=== PATIENT | female | born 1970 | race Caucasian/White ===

== ENCOUNTER 2023-04-06 11:47 | Emergency (ER) | payer MEDICAID, SELFPAY ==
[2023-04-06] VITALS (28 sets, daily range): BP systolic 115–137; BP diastolic 61–110; PULSE 80–100; RESP 14–33; TEMP 36.8; O2SAT 94–98; BMI 31.4
[2023-04-06] MEDS: IPRATROPIUM/ALBUTEROL SULFATE 3 ML AMPUL.NEB IH ×2 (12:14→14:06)
[2023-04-06 12:19] LABS: Basophils Absolute Auto 0.1 10^3/uL (0.0-0.1); Basophils Percent Auto 0.6 % (0.2-2.0); Eosinophils Percent Auto 5.3 % (0.9-7.0); Hematocrit 38.7 % (36.0-48.0); Hemoglobin 12.3 g/dL (12.0-16.0); Immature Granulocytes Abs Auto 0.21 10^3/uL (0.00-0.03); Immature Granulocytes Pct Auto 1.1 % (0.0-0.5); Lymphocytes Absolute Auto 2.1 10^3/uL (1.2-3.8); Mean Corpuscular HGB Conc 31.8 g/dL (29.9-35.2); Mean Corpuscular Hemoglobin 28.1 pg (26.7-34.0); Mean Corpuscular Volume 88.6 fL (81.0-99.0); Mean Platelet Volume 8.9 fL (9.5-13.5); Monocytes Absolute Auto 1.4 10^3/uL (0.3-0.8); Monocytes Percent Auto 7.1 % (1.7-12.0); Neutrophils Absolute Auto 14.4 10^3/uL (1.4-6.5); Neutrophils Percent Auto 74.9 % (43.0-75.0); Platelet Count 499 10^3/uL (150-450); Red Blood Count 4.37 10^6/uL (4.20-5.40); Red Cell Distribution Width 13.3 % (11.0-15.0); White Blood Count 19.2 10^3/uL (4.0-11.0)
[2023-04-06 12:30] LABS: Alanine Aminotransferase 47 U/L (14-59); Albumin Globulin Ratio 0.5; Albumin Level 2.5 g/dL (3.4-5.0); Alkaline Phosphatase 90 U/L (46-116); Anion Gap 10.5; Aspartate Amino Transferase 49 U/L (15-37); BUN Creatinine Ratio 21.4; Bilirubin Total 0.6 mg/dL (0.2-1.0); Calcium 9.2 mg/dL (8.5-10.1); Carbon Dioxide 29.4 mmol/L (21.0-32.0); Chloride 102 mmol/L (98-107); Estimated GFR (African America >60 (>=60); Estimated GFR (Non-African Ame >60 (>=60); Globulin 4.9 g/dL; Glucose 110 mg/dL (74-106); Sodium 139 mmol/L (136-145); Total Protein 7.4 g/dL (6.4-8.2)
[2023-04-06 12:32] LABS: Troponin I High Sensitivity 5.3 pg/mL (4.0-51.3)
[2023-04-06 12:34] LABS: Potassium 2.9 mmol/L (3.5-5.1)
[2023-04-06] MEDS: METHYLPREDNISOLONE SOD SUCC PF 125 MG/2 ML VIAL IVP (12:34)
--- NOTE | 2023-04-06 12:35 | PC.NURSE ---
Critical potassium level received and Dr. Perry notified.
[2023-04-06] MEDS: 0.9 % SODIUM CHLORIDE 1,000 ML 1000 ML IV (12:37)
--- NOTE | 2023-04-06 12:41 | XR_ITS ---
[facility] [id number] Patient Name: PAOLO BOSTON MRN: [id number] date: 1970 Sex: F Assigned Patient Location: ER Current Patient Location: ED.MAIN Accession/Order Number: [id number] Exam Date: 04/06/2023 12:53 Report Date: 04/06/2023 14:12 At the request of: LAY GENAO Procedure: XR chest 1V EXAM: XR chest 1V HISTORY: sob upper extremity infection x2 weeks. Cough. Shortness of breath. COMPARISON: None. TECHNIQUE: AP chest x-ray. FINDINGS: Cardiac size appears within normal limits. Trachea is midline. No mediastinal widening. Mild perihilar peribronchial thickening is noted. No focal airspace consolidation, pneumothorax or effusion is seen. Osseous structures appear intact. XR/XR chest 1V IMPRESSION: Reactive or inflammatory airways disease. No focal pneumonia. Electronically authenticated by: BRE CASTLE Date: 04/06/2023 14:12
--- NOTE | 2023-04-06 12:41 | ECG_ITS ---
[facility] Test Date: 2023-04-06 Pat Name: PAOLO BOSTON Department: Room: - Gender: Female Scale Clerk: : 1970 Requested By: Order Number: [id number] Reading MD: JERMAINE HOLMAN Measurements Intervals [place] Rate: 96 P: 80 ME: 138 QRS: 31 QRSD: 86 T: 65 QT: 352 QTc: 405 Interpretive Statements 1100 Sinus rhythm 9110 normal ECG No previous ECG available for comparison Electronically Signed On 04-08-2023 17:30:01 EST by JERMAINE HOLMAN
[2023-04-06 12:49] LABS: Lactate/Lactic Acid 0.7 mmol/L (0.4-2.0)
[2023-04-06 13:07] LABS: Internal Control Within Normal Limits; Strep A Antigen Screen Negative
--- NOTE | 2023-04-06 13:57 | PC.NURSE ---
assissted pt to the bathroom and back in room. Pursed lip breathing demonstrated and pt returned demonstration with maximum verbal cuing. Pt requested another breathing treatment. notified and agreed. Retrieved gatorade for pt and SL at this time. Primary nurse notified. RT called
[2023-04-06 14:00] LABS: SARS-CoV-2 Ag NEGATIVE (NEGATIVE)
[2023-04-06] MEDS: POTASSIUM CHLORIDE 10 MEQ ER TABLET 40 MEQ PO (14:59)
[2023-04-06] MEDS: AZITHROMYCIN 250 MG TABLET 500 MG PO (14:59)
--- NOTE | 2023-04-07 07:43 | ED.SOB1 ---
HPI - SOB/Dyspnea General Chief Complaint: Shortness of Breath/Dyspnea Stated Complaint: DIFF BREATHING Time Seen by Provider: 04/06/23 12:06 Source: patient Mode of arrival: Wheelchair Limitations: no limitations History of Present Illness HPI Narrative: The patient have history of asthma coming to the ER with shortness of breath that been going on at least for 3 weeks she did run out of her inhaler and she does not have it. The patient did not have any evaluation by her doctor for the last 3 weeks and she was trying [id number] medication. She is presenting to us with shortness of breath cough productive of whitish sputum No nausea vomiting or diarrhea no abdominal pain or chest pain Related Data Previous Rx's Medication Instructions Recorded albuterol sulfate 90 mcg/actuation 2 inh inhalation QID PRN shortness 04/06/23 aerosol inhaler of breath or wheezing #8.5 grams fluticasone 250 mcg-salmeterol 50 1 inh inhalation BID #60 ea 04/06/23 mcg/dose blistr powdr for inhalation (Advair Diskus) potassium chloride 20 mEq oral 20 meq PO DAILY 2 doses #2 ea 04/06/23 packet prednisone 50 mg tablet 50 mg PO DAILY 5 days #5 tabs 04/06/23 azithromycin 250 mg tablet See Rx Instructions PO .COMPLEX #6 04/07/23 tabs Allergies Allergy/AdvReac Type Severity Reaction Status Date / Time No Known Drug Allergies Allergy Verified 04/06/23 19:08 Review of Systems ROS Status of ROS 10 or more systems reviewed and unremarkable except as noted in history and below PFSH PFSH Medical History (Updated 04/06/23 @ 23:04 by Dori Perez) FHx: cholecystectomy ?Z83.79 - Family history of other diseases of the digestive system (ICD-10) Heart burn ?R12 - Heartburn (ICD-10) Surgical History (Updated 04/06/23 @ 23:04 by Dori Perez) Hx of section ?Z98.891 - History of uterine scar from previous surgery (ICD-10) Family History (Updated 04/06/23 @ 23:05 by Dori Perez) Mother Family history of COPD (chronic obstructive pulmonary disease) Family history of cancer Father Family history of cancer Aunt Family history of cancer Social History (Updated 04/06/23 @ 23:07 by Dori Perez) Within the past year, how often did you have a drink containing alcohol: monthly or less Within the past year, how many standard drinks containing alcohol did you have on a typical day: 1 or 2 Within the past year, how often did you have six or more drinks on one occasion: less than monthly Total score: 1 Score interpretation: A score less than 3 is consistent with normal alcohol consumption. Smoking status: Never smoker Second hand tobacco smoke exposure: No Non-prescribed substance use: denies use Previous occupational history: disabled Known occupational exposures/hazards: No Highest level of school completed/degree received: high school graduate Do you want help with school or training: No Are you now , , , , never or living with a partner: In a typical week, how many times do you talk on the telephone with family, friends, or neighbors: once per week How often do you get together with friends or relatives: once per week How often do you attend latter-day or religion services: never Do you belong to any clubs or organizations such as latter-day groups unions, fraternal or athletic groups, or school groups: no Total score: 0 Score interpretation: A score of less than or equal to 1 indicates the most socially isolated. Little interest or pleasure in doing things: not at all Feeling down, depressed, or hopeless: not at all Feel stressed/tense/nervous/anxious/difficulty sleeping: not at all Due to disability, difficulty making decisions: No Do you think of yourself as: straight/heterosexual Gender Identity: female Exam Narrative Exam Narrative: Nurses notes and vital signs reviewed and patient is not hypoxic. General: Well-appearing and in no apparent distress. Skin: Warm, dry, no pallor noted. No rash. Head: Normocephalic, atraumatic. Neck: Supple, non-tender. Eye: Pupils are equal, round and EOMI. No scleral icterus. Ears, Nose, Mouth, and Throat: TM are clear, no nasal mucosal hypertrophy. Oral mucosa is moist, no posterior oropharynx erythema, uvula is mid-line Cardiovascular: Regular Rate and Rhythm without murmur, gallop or rub. Respiratory: Mildly distressed Lungs the patient is having bilateral expiratory lung wheezes Chest Wall: no tenderness Back: No midline thoracic or lumbar vertebral tenderness. No CVA tenderness Musculoskeletal: normal ROM, no calf or popliteal tenderness, no lower extremity edema/swelling GI: Abdomen is soft, non-distended. Normal bowel sounds. No masses appreciated. No tenderness to palpation. No rebound, guarding, or rigidity noted. Neurological: A&O x4. No cranial nerve dysfunction observed. No truncal ataxia. Moves all extremities. Sensation intact. Psychiatric: Cooperative and interactive. Normal mood and affect. Constitutional Vital Signs, click to edit/add: Last Vital Signs Temp 98.2 F 04/06/23 11:57 Pulse 86 04/06/23 15:15 Resp 16 04/06/23 15:15 BP 134/77 04/06/23 15:14 Pulse Ox 96 04/06/23 15:15 O2 Del Method Room Air 04/06/23 12:21 Course Vital Signs Vital signs: Vital Signs Temperature 98.2 F 04/06/23 11:57 Pulse Rate 100 H 04/06/23 11:57 Respiratory Rate 22 04/06/23 11:57 Blood Pressure 137/110 H 04/06/23 11:57 Pulse Oximetry 95 04/06/23 11:57 Oxygen Delivery Method Room Air 04/06/23 11:57 Temperature 98.2 F 04/06/23 11:57 Pulse Rate 86 04/06/23 15:15 Respiratory Rate 16 04/06/23 15:15 Blood Pressure 134/77 04/06/23 15:14 Pulse Oximetry 96 04/06/23 15:15 Oxygen Delivery Method Room Air 04/06/23 12:21 MDM - SOB/Dyspnea MDM Narrative Medical decision making narrative: The patient EKG in the ER was showing sinus rhythm with a heart rate of [address] elevation or depression CBC showed leukocytosis and the patient chemistry showing hypokalemia, Lactic acid was not elevated The patient was feeling much better after being treated with Solu-Medrol as well as breathing treatment in the ER and hydration as well as p.o. potassium She requested to go home after I recommended initially for her to be admitted but after walking around in the hallway the patient pulse ox stayed within 94 to 95% The patient was adamant about leaving because it was her birthday And the patient right now was provided with a prescription for prednisone as well as potassium Advair and albuterol and she also was called antibiotic next day to her pharmacy The patient was instructed about the importance of coming back in case of any more shortness of breath and she understands The patient is to follow up with primary care physician in next 2-3 days or to return to the emergency department should any of the signs or symptoms worsen or new symptoms develop. The patient agrees with the following Diagnosis and Treatment plan and the patient will be discharged home. Lab Data Labs: Lab Results 04/06/23 04/06/23 04/06/23 Range/Units 12:05 12:06 12:46 WBC 19.2 H (4.0-11.0) 10^3/uL RBC 4.37 (4.20-5.40) 10^6/uL Hgb 12.3 (12.0-16.0) g/dL Hct 38.7 (36.0-48.0) % MCV 88.6 (81.0-99.0) fL MCH 28.1 (26.7-34.0) pg MCHC 31.8 (29.9-35.2) g/dL RDW 13.3 (11.0-15.0) % Plt Count 499 H (150-450) 10^3/uL MPV 8.9 L (9.5-13.5) fL Neut % (Auto) 74.9 (43.0-75.0) % Lymph % (Auto) 11.0 L (20.5-60.0) % Borden % (Auto) 7.1 (1.7-12.0) % Eos % (Auto) 5.3 (0.9-7.0) % Baso % (Auto) 0.6 (0.2-2.0) % Neut # (Auto) 14.4 H (1.4-6.5) 10^3/uL Lymph # (Auto) 2.1 (1.2-3.8) 10^3/uL Borden # (Auto) 1.4 H (0.3-0.8) 10^3/uL Eos # (Auto) 1.0 H (0.0-0.7) 10^3/uL Baso # (Auto) 0.1 (0.0-0.1) 10^3/uL Abs Immat Gran (auto) 0.21 H (0.00-0.03) 10^3/uL Imm/Tot Granulo (auto) 1.1 H (0.0-0.5) % Sodium 139 (136-145) mmol/L Potassium 2.9 L* (3.5-5.1) mmol/L Chloride 102 (98-107) mmol/L Carbon Dioxide 29.4 (21.0-32.0) mmol/L Anion Gap 10.5 BUN 18.0 (7.0-18.0) mg/dL Creatinine 0.84 (0.55-1.02) mg/dL Est GFR ( Amer) >60 (>=60) Est GFR (Non-Af Amer) >60 (>=60) BUN/Creatinine Ratio 21.4 Glucose 110 H (74-106) mg/dL Lactate 0.7 (0.4-2.0) mmol/L Calcium 9.2 (8.5-10.1) mg/dL Total Bilirubin 0.6 (0.2-1.0) mg/dL AST 49 H (15-37) U/L ALT 47 (14-59) U/L Alkaline Phosphatase 90 (46-116) U/L Troponin I High Sens 5.3 (4.0-51.3) pg/mL Total Protein 7.4 (6.4-8.2) g/dL Albumin 2.5 L (3.4-5.0) g/dL Globulin 4.9 g/dL Albumin/Globulin Ratio 0.5 SARS-CoV-2 (PCR) Negative (NEGATIVE) Streptococcus Screen Negative Discharge Plan Discharge Chief Complaint: Shortness of Breath/Dyspnea Clinical Impression: Asthma with acute exacerbation Patient Disposition: Home, Self-Care Time of Disposition Decision: 15:07 Condition: Good Prescriptions / Home Meds: New prednisone 50 mg tablet 50 mg PO DAILY 5 Days Qty: 5 0RF potassium chloride 20 mEq packet 20 meq PO DAILY Qty: 2 0RF fluticasone propion-salmeterol [Advair Diskus] 250-50 mcg/dose blister with device 1 inh inhalation BID Qty: 60 0RF albuterol sulfate 90 mcg/actuation HFA aerosol inhaler 2 inh inhalation QID PRN (Reason: shortness of breath or wheezing) Qty: 8.5 0RF azithromycin 250 mg tablet See Rx Instructions .ROUTE .COMPLEX Qty: 6 0RF Rx Instructions: For 250 mg dose pack: take 500 mg today (day 1), then 250 mg for 4 days (days 2-5) Instructions: Asthma (ED), Hypokalemia (ED) Stand Alone Forms: Portal Instructions Referrals: Physician,Non-Staff, MD [Primary Care Provider] - 1 week Discharge Date/Time: 04/06/23 15:17
[2023-04-07 10:23] LABS: SARS-CoV-2 NAA NOT DETECTED (NOT DETECTE)
== END 2023-04-06 15:17 | disposition home or self-care (01) ==
PROVIDERS: Emergency Provider Emergency Medicine
DX: J45.901 Unspecified asthma with (acute) exacerbation (principal)
CPT/HCPCS: 36415; 71045; 80053; 83605; 84484; 85025; 87040; 87070; 87635; 87811; 87880; 93005; 94640; 96374; 99285; J2930

== ENCOUNTER 2023-04-06 18:45 | Observation (INO) | payer MEDICAID, SELFPAY ==
[2023-04-06] VITALS (8 sets, daily range): BP systolic 116–154; BP diastolic 70–93; PULSE 98–114; RESP 20–28; TEMP 36.6–36.9; O2SAT 93–95; BMI 32.0
--- NOTE | 2023-04-06 20:51 | ED_ITS ---
HPI - SOB/Dyspnea General Chief Complaint: Shortness of Breath/Dyspnea Stated Complaint: DIFF BREATHING Time Seen by Provider: 04/06/23 19:16 Source: patient Mode of arrival: Wheelchair Limitations: no limitations History of Present Illness HPI Narrative: 53-year-old female presents for difficulty breathing. She was seen here earlier today and apparently the physician who saw her wanted her to be admitted. The pa yeny apparently refused because it's her birthday. She went out to eat and then she came here to be admitted. She recently moved here from [place] and states that the climate is affecting her. She was found to have a potassium is 2.9 earlier today. No known fever. Related Data Previous Rx's Medication Instructions Recorded albuterol sulfate 90 mcg/actuation 2 inh inhalation QID PRN shortness 04/06/23 aerosol inhaler of breath or wheezing #8.5 grams fluticasone 250 mcg-salmeterol 50 1 inh inhalation BID #60 ea 04/06/23 mcg/dose blistr powdr for inhalation (Advair Diskus) potassium chloride 20 mEq oral 20 meq PO DAILY 2 doses #2 ea 04/06/23 packet prednisone 50 mg tablet 50 mg PO DAILY 5 days #5 tabs 04/06/23 Allergies Allergy/AdvReac Type Severity Reaction Status Date / Time No Known Drug Allergies Allergy Verified 04/06/23 19:08 Review of Systems ROS Narrative A ten point review of systems is negative except as noted above. PFSH PFSH Social History Smoking status: Never smoker Exam Narrative Exam Narrative: Nurses note and vital signs reviewed and patient is not hypoxic. General: The patient appears in no acute respiratory distress. Skin: Warm, dry, no pallor noted. There is no rash noted. Head: Normocephalic, atraumatic Eye: Normal conjunctiva, no drainage, Ears, Nose, Mouth, and Throat: oral mucosa is moist. Nares patent. Cardiovascular: Regular Rate and Rhythm, mild tachycardia Respiratory: bilateral rhonchi present but good air movement also present Back: non-tender GI: soft and nontender Musculoskeletal: The patient has no evidence of calf tenderness, no pitting edema, symmetrical pulses noted bilaterally Neurological: A&O, normal speech Psychiatric: Cooperative Constitutional Vital Signs, click to edit/add: Last Vital Signs Temp 97.9 F 04/06/23 19:05 Pulse 104 H 04/06/23 21:01 Resp 20 04/06/23 21:01 BP 116/78 04/06/23 19:05 Pulse Ox 94 L 04/06/23 21:01 O2 Del Method Room Air 04/06/23 19:05 Course Vital Signs Vital signs: Vital Signs Temperature 97.9 F 04/06/23 19:05 Pulse Rate 114 H 04/06/23 19:05 Respiratory Rate 20 04/06/23 19:05 Blood Pressure 116/78 04/06/23 19:05 Pulse Oximetry 95 04/06/23 19:05 Oxygen Delivery Method Room Air 04/06/23 19:05 Temperature 97.9 F 04/06/23 19:05 Pulse Rate 104 H 04/06/23 21:01 Respiratory Rate 20 04/06/23 21:01 Blood Pressure 116/78 04/06/23 19:05 Pulse Oximetry 94 L 04/06/23 21:01 Oxygen Delivery Method Room Air 04/06/23 19:05 MDM - SOB/Dyspnea MDM Narrative Medical decision making narrative: earlier today she had negative chest x-ray and negative Covid and negative influenza testing. We've given her aerosol treatment here as well as Solu-Medrol and Zofran and oral potassium and she's being admitted. Findings are discussed with the patient. Differential Diagnosis Differential diagnosis: Likely community acquired pneumonia and asthma with exacerbation Medical Records Attestation: I reviewed the patient's medical records. Lab Data Attestation: I reviewed the patient's lab results. Imaging Data Chest x-ray: Radiologist's impression: Procedure: XR chest 1V EXAM: XR chest 1V HISTORY: sob upper extremity infection x2 weeks. Cough. Shortness of breath. COMPARISON: None. TECHNIQUE: AP chest x-ray. FINDINGS: Cardiac size appears within normal limits. Trachea is midline. No mediastinal widening. Mild perihilar peribronchial thickening is noted. No focal airspace consolidation, pneumothorax or effusion is seen. Osseous structures appear intact. IMPRESSION: Reactive or inflammatory airways disease. No focal pneumonia. Electronically authenticated by: BRE CASTLE Date: 04/06/2023 14:12 Critical Care Time Critical Care Time Critical Care Time: Yes Total Critical Care Time: 35 Attestation: Due to the high probability of sudden and clinically significant deterioration in the patient's condition he/she required the highest level of my preparedness to intervene urgently I provided critical care time including documentation time, medication orders and management, reevaluation, vital sign assessment, ordering and reviewing of lab tests, ordering and reviewing of x-ray studies, and admission orders. Aggregate critical care time is 35 minutes including only time during which I was engaged in work directly related to his/her care and did not include time spent treating other patients simultaneously. Discharge Plan Discharge Chief Complaint: Shortness of Breath/Dyspnea Clinical Impression: Asthma with acute exacerbation, Hypokalemia Patient Disposition: Admitted as Observation Time of Disposition Decision: 21:35 Condition: Good Prescriptions / Home Meds: No Action prednisone 50 mg tablet 50 mg PO DAILY 5 Days Qty: 5 0RF potassium chloride 20 mEq packet 20 meq PO DAILY Qty: 2 0RF fluticasone propion-salmeterol [Advair Diskus] 250-50 mcg/dose blister with device 1 inh inhalation BID Qty: 60 0RF albuterol sulfate 90 mcg/actuation HFA aerosol inhaler 2 inh inhalation QID PRN (Reason: shortness of breath or wheezing) Qty: 8.5 0RF Referrals: Physician,Non-Staff, MD [Primary Care Provider] - 1 week
--- NOTE | 2023-04-06 20:54 | ECG_ITS ---
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
[2023-04-06] MEDS: ALBUTEROL SULFATE 2.5 MG/3 ML VIAL NEB IH (21:01)
[2023-04-06] MEDS: ONDANSETRON PF 4 MG/2 ML VIAL IV (21:30)
[2023-04-06] MEDS: METHYLPREDNISOLONE SOD SUCC PF 125 MG/2 ML VIAL IVP (21:30)
[2023-04-06] MEDS: POTASSIUM BICARBONATE/CIT 25 MEQ TABLET EFF 50 MEQ PO (21:31)
--- NOTE | 2023-04-07 00:17 | P.PN_ITS ---
Progress Note: Subjective Subjective Interval history: CCC - Exam Constitutional Vital Signs, click to edit/add: Last Vital Signs Temp 98.5 F 04/06/23 22:39 Pulse 98 H 04/06/23 22:39 Resp 28 H 04/06/23 22:39 BP 154/79 H 04/06/23 22:39 Pulse Ox 93 L 04/06/23 22:39 O2 Del Method Room Air 04/06/23 22:39 Telemedicine Attestation Telemedicine Attestation I conducted this encounter from [] via secure live, [id number] video conference with the patient, located at [facility] with []. Prior to the interview, the risks and benefits of telemedicine were discussed with the patient and verbal consent was obtained.
[2023-04-07] MEDS: TEMAZEPAM 15 MG CAPSULE PO (00:35)
[2023-04-07] MEDS: CEFTRIAXONE 1,000 MG in 0.9 % SODIUM CHLORIDE 50 ML 100 MG IV (00:35)
[2023-04-07] MEDS: MONTELUKAST SODIUM 10 MG TABLET PO (00:35)
[2023-04-07 00:36] VITALS: PULSE 100; RESP 24; O2SAT 94
[2023-04-07] MEDS: ALBUTEROL SULFATE 2.5 MG/3 ML VIAL NEB IH ×2 (00:36→13:32)
[2023-04-07] MEDS: AZITHROMYCIN 500 MG in 0.9 % SODIUM CHLORIDE 250 ML 250 MG IV (01:18)
[2023-04-07] MEDS: METHYLPREDNISOLONE SOD SUCC PF 40 MG/ML VIAL IVP (04:03)
[2023-04-07 04:08] VITALS: BP 130/77; PULSE 99; RESP 18; TEMP 36.7; O2SAT 90
[2023-04-07 04:26] VITALS: PULSE 100; RESP 24; O2SAT 92
[2023-04-07] MEDS: IPRATROPIUM/ALBUTEROL SULFATE 3 ML AMPUL.NEB IH ×2 (04:26→10:51)
--- NOTE | 2023-04-07 05:57 | W.PM.TELEPN ---
Progress Note: Subjective Subjective Interval history: CC -short of breath cough HPI: This is a 53 years old white female with known diagnosis of asthma who presents with above complaints. Patient stating that she lost her insurance. She recently relocated from [facility] locally. She not been able to afford her medications and inhalers. Patient stating that she over the course of the last week she did not feel well with progressively worsening wheezing, cough, shortness of breath. Patient denies any fevers or chills. She is not a smoker. She denies any exposure. Evaluation in the emergency room significant for signs of asthma and bronchospasm. Admitted for further evaluation and treatment Exam Narrative Exam Narrative: Physical Exam: Not in distress, pleasant, lucid, cooperative, Head - atraumatic, eyes - pupils equal, round, reactive to light, extra ocular movement intact, MMM Neck - supple, thyroid not enlarged, LN not palpated Lungs -coarse breath sounds, bilateral wheezing, CVS - heart sounds S1, S2, no additional murmurs gallop, regular rate and rhythm Gastrointestinal?abdomen is soft, non-tender, non-distended, no organomegaly, positive bowel sounds Extremities no clubbing, cyanosis or edema Neurological?cranial nerve II?XII grossly intact, no meningeal signs, no cerebellar signs, no sensory deficit Musculoskeletal - joints, no effusions, ROM preserved Dermatological - the skin dry, warm, no rashes Psychiatric?patient is AAO X3, patient has normal affect Constitutional Vital Signs, click to edit/add: Last Vital Signs Temp 98.1 F 04/07/23 04:08 Pulse 100 H 04/07/23 04:26 Resp 24 04/07/23 04:26 BP 130/77 04/07/23 04:08 Pulse Ox 92 L 04/07/23 04:26 O2 Del Method Room Air 04/07/23 04:26 Progress Note: A&P Assessment and Plan (1) Asthma with acute exacerbation: Assessment and Plan: Asthma exacerbation. Patient not been able to afford inhalers and medications. His show supposed to be starting within few days. Responding to bronchodilators, inhaled and systemic steroids. I ordered empiric antibiotic coverage. I will add procalcitonin. Follow-up results of the cultures. If all negative?discontinue antibiotics. Oxygen supplementation as needed. (2) Hypokalemia: Assessment and Plan: Continue with replacement therapy Plan As the provider for the telehealth service, I attest that I introduced myself to the patient, provided my credentials, disclosed by location and determined that based on a review of the patient's chart and discussion with members of the patient's treatment team, telemedicine via real-time, 2 way, and interactive audio and video platform is an appropriate and effective means of providing the service. ?The patient and I mutually agree this visit is appropriate for telemedicine. ?The virtual encounter was taken place from? [place], [place]. ?The encounter took approximately 35 minutes. ?The nurse was present during the entire time and I was able to move the stethoscope in appropriate directions. ?The patient was evaluated at the Hospital ? Portions of this note may be dictated using [employer] voice recognition software. Variances in spelling and vocabulary are possible and unintentional. Not all errors may be caught and/or corrected. Please notify the author if any discrepancies are noted and/or if the meaning of any statement is unclear.? ? Patient verbally consented for treatment via video visit with patient currently located at the [facility] and provider located in [place]. Telemedicine Attestation Telemedicine Attestation I conducted this encounter from [[place]] via secure live, [id number] video conference with the patient, located at [facility] with [asthma exacerbation]. Prior to the interview, the risks and benefits of telemedicine were discussed with the patient and verbal consent was obtained.
[2023-04-07 06:01] LABS: Basophils Absolute Auto 0.1 10^3/uL (0.0-0.1); Basophils Percent Auto 0.3 % (0.2-2.0); Hematocrit 34.2 % (36.0-48.0); Hemoglobin 10.9 g/dL (12.0-16.0); Immature Granulocytes Pct Auto 2.4 % (0.0-0.5); Lymphocytes Absolute Auto 1.5 10^3/uL (1.2-3.8); Lymphocytes Percent Auto 7.3 % (20.5-60.0); Mean Corpuscular HGB Conc 31.9 g/dL (29.9-35.2); Mean Corpuscular Hemoglobin 28.1 pg (26.7-34.0); Mean Corpuscular Volume 88.1 fL (81.0-99.0); Mean Platelet Volume 9.2 fL (9.5-13.5); Monocytes Absolute Auto 0.5 10^3/uL (0.3-0.8); Monocytes Percent Auto 2.2 % (1.7-12.0); Neutrophils Absolute Auto 18.1 10^3/uL (1.4-6.5); Neutrophils Percent Auto 87.8 % (43.0-75.0); Platelet Count 499 10^3/uL (150-450); Red Blood Count 3.88 10^6/uL (4.20-5.40); Red Cell Distribution Width 13.5 % (11.0-15.0); White Blood Count 20.7 10^3/uL (4.0-11.0)
[2023-04-07 06:11] LABS: Carbon Dioxide 25.6 mmol/L (21.0-32.0); Chloride 103 mmol/L (98-107); Estimated GFR (African America >60 (>=60); Estimated GFR (Non-African Ame >60 (>=60); Glucose 232 mg/dL (74-106); Potassium 3.6 mmol/L (3.5-5.1); Sodium 139 mmol/L (136-145)
[2023-04-07 08:00] VITALS: RESP 20
[2023-04-07] MEDS: ACETAMINOPHEN 325 MG TABLET 650 MG PO (08:55)
[2023-04-07] MEDS: BUDESONIDE 0.5 MG/2 ML AMPULE NEB IH (10:51)
[2023-04-07 10:54] VITALS: O2SAT 93
[2023-04-07 13:33] VITALS: O2SAT 93
--- NOTE | 2023-04-07 15:45 | P.HP_ITS ---
H&P: HPI History of Present Illness Chief complaint: DIFF BREATHING ACUTE EXACERBATION ASTHMA Narrative: 53 y/o female to ER with SOB. History of asthma and recently moved from [place]. Ran out of inhalers about 3 weeks ago and hasn't updated her insurance for [place]. Developed worsening SOB and cough. Frequent coughing spells and to ER. Chest x-ray showed changes of reactive airway disease but no infiltrate. WBC elevated. Given steroids and albuterol. ER discussed admission but patient wanted to leave and normal SpO2 on room air. Discharged with steroids, albuterol, and antibiotics. Filled albuterol and steroids. Later in day had worsening cough and SOB. Returned to ER and admitted. Started rocphine, zithromax, and solu-medrol. Giving albuterol every 4 hours. Improved this am and less SOB but continued coughing spells. Review of Systems ROS Constitutional Denies: fever, chills or fatigue Cardiovascular Denies: chest pain, palpitations or edema Respiratory Reports: shortness of breath, cough and wheezing Gastrointestinal Denies: abdominal pain, nausea, vomiting or diarrhea Genitourinary Denies: painful urination [facility] Medical History (Updated 04/07/23 @ 09:27 by Ahmet Jacobo MD) FHx: cholecystectomy ?Z83.79 - Family history of other diseases of the digestive system (ICD-10) Heart burn ?R12 - Heartburn (ICD-10) Surgical History (Updated 04/06/23 @ 23:04 by Dori Perez) Hx of section ?Z98.891 - History of uterine scar from previous surgery (ICD-10) Family History (Updated 04/06/23 @ 23:05 by Dori Perez) Mother Family history of COPD (chronic obstructive pulmonary disease) Family history of cancer Father Family history of cancer Aunt Family history of cancer Social History (Updated 04/06/23 @ 23:07 by Dori Perez) Within the past year, how often did you have a drink containing alcohol: monthly or less Within the past year, how many standard drinks containing alcohol did you have on a typical day: 1 or 2 Within the past year, how often did you have six or more drinks on one occasion: less than monthly Total score: 1 Score interpretation: A score less than 3 is consistent with normal alcohol consumption. Smoking status: Never smoker Second hand tobacco smoke exposure: No Non-prescribed substance use: denies use Previous occupational history: disabled Known occupational exposures/hazards: No Highest level of school completed/degree received: high school graduate Do you want help with school or training: No Are you now , , , , never or living with a partner: In a typical week, how many times do you talk on the telephone with family, friends, or neighbors: once per week How often do you get together with friends or relatives: once per week How often do you attend restoration or taoism services: never Do you belong to any clubs or organizations such as restoration groups unions, [employer] or athletic groups, or school groups: no Total score: 0 Score interpretation: A score of less than or equal to 1 indicates the most socially isolated. Little interest or pleasure in doing things: not at all Feeling down, depressed, or hopeless: not at all Feel stressed/tense/nervous/anxious/difficulty sleeping: not at all Due to disability, difficulty making decisions: No Do you think of yourself as: straight/heterosexual Gender Identity: female Meds Home Medications and Allergies Home Medications Medication Instructions Recorded Confirmed Type albuterol sulfate 90 mcg/actuation 2 inh inhalation QID PRN shortness 04/06/23 04/06/23 Rx aerosol inhaler of breath or wheezing #8.5 grams fluticasone 250 mcg-salmeterol 50 1 inh inhalation BID #60 ea 04/06/23 04/06/23 Rx mcg/dose blistr powdr for inhalation (Advair Diskus) potassium chloride 20 mEq oral 20 meq PO DAILY 2 doses #2 ea 04/06/23 04/06/23 Rx packet prednisone 50 mg tablet 50 mg PO DAILY 5 days #5 tabs 04/06/23 04/06/23 Rx ciprofloxacin HCl 500 mg tablet 500 mg PO BID 10 days #20 tabs 04/07/23 Rx Allergies Allergy/AdvReac Type Severity Reaction Status Date / Time No Known Drug Allergies Allergy Verified 04/06/23 19:08 Exam Constitutional Vital Signs, click to edit/add: Last Vital Signs Temp 98.1 F 04/07/23 04:08 Pulse 100 H 04/07/23 04:26 Resp 20 04/07/23 08:00 BP 130/77 04/07/23 04:08 Pulse Ox 93 L 04/07/23 13:33 O2 Del Method Room Air 04/07/23 13:33 Documenting provider has reviewed patient's vital signs: yes Common normals: no apparent distress, oriented x3 and alert HENMT Common normals: normocephalic Eye Common normals: PERRL and EOMs intact bilaterally Respiratory Common normals: normal respiratory effort and clear to auscultation bilaterally Cardio Common normals: regular rate, regular rhythm, no gallops, no murmurs and no rub GI Common normals: Normal to inspection, nondistended, normoactive bowel sounds present and non-tender Results Labs Labs: Short CBC 04/07/23 Range/Units 04:27 WBC 20.7 H (4.0-11.0) 10^3/uL Hgb 10.9 L (12.0-16.0) g/dL Hct 34.2 L (36.0-48.0) % Plt Count 499 H (150-450) 10^3/uL BMP 04/07/23 04:27 Sodium 139 Potassium 3.6 Chloride 103 Carbon Dioxide 25.6 BUN 16.0 Creatinine 0.89 Glucose 232 H Calcium 9.0 Assessment and Plan Assessment and Plan (1) Asthma with acute exacerbation: (2) Leukocytosis: (3) Hypokalemia: Plan Admitted with asthma exacerbation and improved with treatment. C/o continued cough but clear lung sounds. Afebrile and normal SpO2 on room air. Discharge home. Will start cipro for infection and take prednisone from ER. Use albuterol PRN. Need to establish with local PCP in 1-2 weeks.
== END 2023-04-07 13:45 | disposition home or self-care (01) ==
LOC: ER 21:36 → MS 22:34
PROVIDERS: Internal Medicine; Admitting Provider Family Medicine; Emergency Provider Emergency Medicine; Visit Provider Family Medicine
DX: J45.901 Unspecified asthma with (acute) exacerbation (principal); D72.829 Elevated white blood cell count, unspecified; E87.6 Hypokalemia; Z98.891 History of uterine scar from previous surgery; Z79.899 Other long term (current) drug therapy; Z20.822 Contact with and (suspected) exposure to COVID-19
CPT/HCPCS: 36415; 71045; 80048; 80053; 83605; 84484; 85025; 87040; 87070; 87635; 87811; 87880; 93005; 94640; 94761; 96365; 96367; 96374; 96375; 96376; 99285; G0378; J0456; J2920; J2930; Q3014

== ENCOUNTER 2023-05-03 14:16 | Outpatient (OUT) | payer MEDICAID, SELFPAY ==
[2023-05-03 14:41] LABS: Basophils Absolute Auto 0.1 10^3/uL (0.0-0.1); Basophils Percent Auto 0.7 % (0.2-2.0); Eosinophils Absolute Auto 0.6 10^3/uL (0.0-0.7); Eosinophils Percent Auto 7.8 % (0.9-7.0); Hematocrit 44.7 % (36.0-48.0); Hemoglobin 13.9 g/dL (12.0-16.0); Immature Granulocytes Abs Auto 0.02 10^3/uL (0.00-0.03); Immature Granulocytes Pct Auto 0.3 % (0.0-0.5); Lymphocytes Absolute Auto 2.4 10^3/uL (1.2-3.8); Lymphocytes Percent Auto 32.7 % (20.5-60.0); Mean Corpuscular HGB Conc 31.1 g/dL (29.9-35.2); Mean Corpuscular Volume 90.1 fL (81.0-99.0); Mean Platelet Volume 8.7 fL (9.5-13.5); Monocytes Absolute Auto 0.5 10^3/uL (0.3-0.8); Monocytes Percent Auto 6.7 % (1.7-12.0); Neutrophils Absolute Auto 3.7 10^3/uL (1.4-6.5); Neutrophils Percent Auto 51.8 % (43.0-75.0); Platelet Count 379 10^3/uL (150-450); Red Blood Count 4.96 10^6/uL (4.20-5.40); Red Cell Distribution Width 15.5 % (11.0-15.0); White Blood Count 7.2 10^3/uL (4.0-11.0)
[2023-05-03 14:52] LABS: Alanine Aminotransferase 28 U/L (14-59); Aspartate Amino Transferase 16 U/L (15-37)
== END 2023-05-03 14:17 | disposition home or self-care (01) ==
DX: B35.1 Tinea unguium (principal)
CPT/HCPCS: 36415; 84450; 84460; 85025

== ENCOUNTER 2023-05-15 13:55 | Emergency (ER) | payer OTHER, SELFPAY ==
[2023-05-15] VITALS (19 sets, daily range): BP systolic 121–142; BP diastolic 73–98; PULSE 79–100; RESP 14–20; TEMP 36.4; O2SAT 95–100; BMI 33.1
--- NOTE | 2023-05-15 14:12 | CT_ITS ---
The [address] [address] Patient Name: PAOLO BOSTON MRN: [id number] date: 1970 Sex: F Assigned Patient Location: ER Current Patient Location: ER Accession/Order Number: [id number] Exam Date: 05/15/2023 15:42 Report Date: 05/15/2023 15:59 At the request of: EASTON TOMLINSON Procedure: CT head/brain wo con CT HEAD WITHOUT CONTRAST. INDICATION: Dizziness. COMPARISON: None available for comparison TECHNIQUE: Axial CT head images from the skull base to the vertex without IV contrast were acquired. Coronal and sagittal reformats were also obtained. FINDINGS: EXTRA-AXIAL SPACE: Age-appropriate ventricles. No acute extra-axial collection. No extra-axial mass. No midline shift. CEREBRUM: No focal abnormality. No CT evidence of acute large territorial cortical infarct, hemorrhage or mass effect. CEREBELLUM: No focal abnormality. No CT evidence of acute infarct, hemorrhage or mass effect. BRAINSTEM: No focal abnormality. No CT evidence of acute infarct, hemorrhage or mass effect. EXTRACRANIAL STRUCTURES. The paranasal sinuses are clear. Mastoid air cells are clear. Orbits are unremarkable. No discrete pituitary mass. Intact calvarium. CT/CT head/brain wo con IMPRESSION: No acute intracranial abnormality. Electronically authenticated by: DANIEL VALENCIA Date: 05/15/2023 15:59
--- NOTE | 2023-05-15 14:12 | XR_ITS ---
The [address] [address] Patient Name: PAOLO BOSTON MRN: [id number] date: 1970 Sex: F Assigned Patient Location: ED.MAIN Current Patient Location: ER Accession/Order Number: [id number] Exam Date: 05/15/2023 15:46 Report Date: 05/15/2023 15:59 At the request of: EASTON TOMLINSON Procedure: XR pelvis 1-2V PROCEDURE: XR pelvis 1-2V COMPARISON: None. HISTORY: trauma, fall FINDINGS: BONES:No fracture, acute abnormality, or significant arthropathy. SOFT TISSUES:Negative. No visible soft tissue swelling. EFFUSION:None visible. OTHER: Negative. XR/XR pelvis 1-2V IMPRESSION: No acute fracture Electronically authenticated by: TONY ANTHONY Date: 05/15/2023 15:59
--- NOTE | 2023-05-15 14:15 | ECG_ITS ---
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
--- NOTE | 2023-05-15 14:15 | ED.DIZZY1 ---
HPI - Dizziness General Chief Complaint: Dizziness Stated Complaint: DIZZINESS Time Seen by Provider: 05/15/23 14:05 Source: patient Mode of arrival: Wheelchair Limitations: no limitations History of Present Illness HPI Narrative: 53-year-old female presents to the emergency department with complaint of dizziness. Describes as a spinning sensation that started at 1100 hrs. yesterday.Patient has had associated nausea, vomiting. Denies prior history of vertigo. Denies headache, extremity weakness. Quality:?spinning Severity:?moderate Timing:?as above, constant Context: Normal setting and activity? Modifying factors:?worse with changes in position Associated symptoms: as above Related Data Home Medications Medication Instructions Recorded Confirmed ibuprofen 800 mg tablet 800 mg PO Q8H 05/15/23 05/15/23 terbinafine HCl 250 mg tablet 250 mg PO DAILY 05/15/23 05/15/23 Previous Rx's Medication Instructions Recorded albuterol sulfate 90 mcg/actuation 2 inh inhalation QID PRN shortness 04/06/23 aerosol inhaler of breath or wheezing #8.5 grams fluticasone 250 mcg-salmeterol 50 1 inh inhalation BID #60 ea 04/06/23 mcg/dose blistr powdr for inhalation (Advair Diskus) meclizine 25 mg tablet 25 mg PO TID PRN dizziness #14 tabs 05/15/23 Allergies Allergy/AdvReac Type Severity Reaction Status Date / Time No Known Drug Allergies Allergy Verified 04/06/23 19:08 Review of Systems ROS Narrative CONST: Denies fever, chills HENT: Denies congestion, sore throat EYES: Denies eye redness, visual disturbance RESP: Denies cough, shortness of breath CV: Denies chest pain, palpitations GI: + nausea, vomiting. Denies abd pain : Denies dysuria, flank pain MS: Denies back pain, myalgias SKIN: Denies color change, rash NEURO: + dizziness. Denies facial asymmetry, headaches, light-headedness, numbness, seizures, syncope, tremors, weakness PSYCHIATRIC: Denies confusion, agitation [facility] Medical History Asthma with acute exacerbation ?J45.901 - Unspecified asthma with (acute) exacerbation (ICD-10) FHx: cholecystectomy ?Z83.79 - Family history of other diseases of the digestive system (ICD-10) Heart burn ?R12 - Heartburn (ICD-10) Surgical History Hx of section ?Z98.891 - History of uterine scar from previous surgery (ICD-10) Family History Mother Family history of COPD (chronic obstructive pulmonary disease) Family history of cancer Father Family history of cancer Aunt Family history of cancer Social History Within the past year, how often did you have a drink containing alcohol: monthly or less Within the past year, how many standard drinks containing alcohol did you have on a typical day: 1 or 2 Within the past year, how often did you have six or more drinks on one occasion: less than monthly Total score: 1 Score interpretation: A score less than 3 is consistent with normal alcohol consumption. Smoking status: Never smoker Second hand tobacco smoke exposure: No Non-prescribed substance use: denies use Previous occupational history: disabled Known occupational exposures/hazards: No Highest level of school completed/degree received: high school graduate Do you want help with school or training: No Are you now , , , , never or living with a partner: In a typical week, how many times do you talk on the telephone with family, friends, or neighbors: once per week How often do you get together with friends or relatives: once per week How often do you attend lutheran or restorationist services: never Do you belong to any clubs or organizations such as lutheran groups unions, fraternal or athletic groups, or school groups: no Total score: 0 Score interpretation: A score of less than or equal to 1 indicates the most socially isolated. Little interest or pleasure in doing things: not at all Feeling down, depressed, or hopeless: not at all Feel stressed/tense/nervous/anxious/difficulty sleeping: not at all Due to disability, difficulty making decisions: No Do you think of yourself as: straight/heterosexual Gender Identity: female Exam Narrative Exam Narrative: Vital signs reviewed Nurses notes noted CONST: Nontoxic, well appearing, well nourished, in no distress.? No diaphoresis.?? HENT: normocephalic, atraumatic, moist mucous membrane, no abnormalities of the nose noted, hearing normal, no facial droop EYES: PERRL, EOMI.? normal appearing conjunctiva, no apparent discharge bilat. No nystagmus noted NECK: normal appearance CV: normal rate, regular rhythm, no murmur RESP: normal effort, speaking in complete sentences. Lung sounds clear and equal bilat.? No wheezes, rales, rhonchi GI: normal bowel sounds, soft, nontender, no distension : no CVA tenderness MS: no edema, injury SKIN: no pallor NEURO: A&Ox 3, GCS = 15, no sensory, motor deficits.? CN normal as tested. 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 No abnormalities noted with coordination. Able to perform [id number] testing. PSYCH: normal mood, affect.? Normal speech.? Memory intact Constitutional Vital Signs, click to edit/add: Last Vital Signs Temp 97.6 F 05/15/23 14:01 Pulse 96 H 05/15/23 16:40 Resp 18 05/15/23 15:30 BP 133/81 05/15/23 16:30 Pulse Ox 97 05/15/23 16:40 O2 Del Method Room Air 05/15/23 14:30 Course Reevaluation(s) Reevaluation #1: Evaluation, patient states she is feeling much better. Patient states she needs to go as her ride will be here in about 20 minutes. Discussed with patient results, plan, and disposition. She is agreeable with plan. Time: 16:14 Vital Signs Vital signs: Vital Signs Temperature 97.6 F 05/15/23 14:01 Pulse Rate 87 05/15/23 14:01 Respiratory Rate 20 05/15/23 14:01 Blood Pressure 142/79 H 05/15/23 14:01 Pulse Oximetry 95 05/15/23 14:01 Oxygen Delivery Method Room Air 05/15/23 14:01 Temperature 97.6 F 05/15/23 14:01 Pulse Rate 96 H 05/15/23 16:40 Respiratory Rate 18 05/15/23 15:30 Blood Pressure 133/81 05/15/23 16:30 Pulse Oximetry 97 05/15/23 16:40 Oxygen Delivery Method Room Air 05/15/23 14:30 MDM - Dizziness MDM Narrative Medical decision making narrative: This is a pleasant 53-yo female presents to the emergency department with complaint of dizziness. Onset yesterday morning. Symptoms have been fairly constant since onset. Patient having associated nausea and vomiting. Symptoms worsen with changes in position. Denies any headache, focal weakness, visual changes. On arrival, afebrile, vital signs are stable. On exam, nontoxic and well-appearing patient in no apparent distress. No focal findings on neurologic exam. Heart regular rate and rhythm. Lung sounds clear and equal bilaterally. Patient was treated with IV fluids, meclizine, Valium with overall improvement of her symptoms. CT had been performed without concerning findings. Labs revealed leukocytosis of 17,000. Patient has had leukocytosis in the past, however, she had normal white blood cell count on last testing. Otherwise no anemia, thrombocytopenia, electrolyte imbalance, renal impairment. LFTs unremarkable. Urinalysis did not show evidence of infection. Did have some ketones in it. Fever vertigo based on history and physical which favors peripheral versus central. Central lesion was considered, however less likely based on history, physical exam, imaging, improvement with medications. Disposition ? The patient was discharged. Plan: Patient will be discharged to home. Condition at time of disposition: stable and improved Prescription for Antivert was sent to her pharmacy. ? Advised to follow up with referral provider, phone number to call for appointment placed on discharge instructions. Advised to return for any worsening and/or development of new, concerning signs or symptoms Medical Records Attestation: I reviewed the patient's medical records. Lab Data Attestation: I reviewed the patient's lab results. Labs: Lab Results 05/15/23 05/15/23 Range/Units 14:24 15:24 WBC 17.8 H (4.0-11.0) 10^3/uL RBC 4.51 (4.20-5.40) 10^6/uL Hgb 12.9 (12.0-16.0) g/dL Hct 40.0 (36.0-48.0) % MCV 88.7 (81.0-99.0) fL MCH 28.6 (26.7-34.0) pg MCHC 32.3 (29.9-35.2) g/dL RDW 14.9 (11.0-15.0) % Plt Count 389 (150-450) 10^3/uL MPV 8.4 L (9.5-13.5) fL Neut % (Auto) 87.1 H (43.0-75.0) % Lymph % (Auto) 8.2 L (20.5-60.0) % [place] % (Auto) 3.4 (1.7-12.0) % Eos % (Auto) 0.7 L (0.9-7.0) % Baso % (Auto) 0.3 (0.2-2.0) % Neut # (Auto) 15.5 H (1.4-6.5) 10^3/uL Lymph # (Auto) 1.5 (1.2-3.8) 10^3/uL [place] # (Auto) 0.6 (0.3-0.8) 10^3/uL Eos # (Auto) 0.1 (0.0-0.7) 10^3/uL Baso # (Auto) 0.1 (0.0-0.1) 10^3/uL Abs Immat Gran (auto) 0.05 H (0.00-0.03) 10^3/uL Imm/Tot Granulo (auto) 0.3 (0.0-0.5) % Sodium 138 (136-145) mmol/L Potassium 3.7 (3.5-5.1) mmol/L Chloride 103 (98-107) mmol/L Carbon Dioxide 25.8 (21.0-32.0) mmol/L Anion Gap 12.9 BUN 23.0 H (7.0-18.0) mg/dL Creatinine 0.76 (0.55-1.02) mg/dL Est GFR ( Amer) >60 (>=60) Est GFR (Non-Af Amer) >60 (>=60) BUN/Creatinine Ratio 30.3 Glucose 158 H (74-106) mg/dL Calcium 9.1 (8.5-10.1) mg/dL Magnesium 2.0 (1.8-2.4) mg/dL Total Bilirubin 0.9 (0.2-1.0) mg/dL AST 16 (15-37) U/L ALT 27 (14-59) U/L Alkaline Phosphatase 68 (46-116) U/L Total Protein 7.5 (6.4-8.2) g/dL Albumin 3.5 (3.4-5.0) g/dL Globulin 4.0 g/dL Albumin/Globulin Ratio 0.9 Urine Color Yellow (YELLOW) Urine Clarity Clear (CLEAR) Urine pH 6.0 (5.0-9.0) Ur Specific [place] >=1.030 A (1.005-1.025) Urine Protein Negative (NEG/TRACE) mg/dL Urine Glucose (UA) Negative (NEGATIVE) mg/dL Urine Ketones 40 A (NEGATIVE) mg/dL Urine Occult Blood Negative (NEGATIVE) Urine Nitrite Negative (NEGATIVE) Urine Bilirubin Negative (NEGATIVE) Urine Urobilinogen 1.0 (0.2-1.0) EU/dL Ur Leukocyte Esterase Negative (NEGATIVE) Imaging Data CT scan - head: Attestation: I have reviewed the pertinent imaging results. Radiologist's impression: ITS Impressions Head CT 05/15/23 14:12 IMPRESSION: No acute intracranial abnormality. Electronically authenticated by: DANIEL VALENCIA Date: 05/15/2023 15:59 Pelvis X-Ray 05/15/23 14:12 IMPRESSION: No acute fracture Electronically authenticated by: TONY ANTHONY Date: 05/15/2023 15:59 ECG Data Attestation: ?I have reviewed the pertinent ECG results. (Performed at 1406 hrs. reveals sinus rhythm at [address] elevation. No acute changes. Normal axis.) Discharge Plan Discharge Chief Complaint: Dizziness Clinical Impression: Vertigo Injury of hip, left Qualifiers: Encounter type: initial encounter Qualified Code(s): S79.912A - Unspecified injury of left hip, initial encounter Hip injury Qualifiers: Encounter type: initial encounter Laterality: right Qualified Code(s): S79.911A - Unspecified injury of right hip, initial encounter Patient Disposition: Home, Self-Care Time of Disposition Decision: 16:14 Condition: Good Mode of Transportation: Private Vehicle Prescriptions / Home Meds: New meclizine 25 mg tablet 25 mg PO TID PRN (Reason: dizziness) Qty: 14 0RF No Action fluticasone propion-salmeterol [Advair Diskus] 250-50 mcg/dose blister with device 1 inh inhalation BID Qty: 60 0RF albuterol sulfate 90 mcg/actuation HFA aerosol inhaler 2 inh inhalation QID PRN (Reason: shortness of breath or wheezing) Qty: 8.5 0RF terbinafine HCl 250 mg tablet 250 mg PO DAILY ibuprofen 800 mg tablet 800 mg PO Q8H Instructions: Vertigo (ED), Hip Pain (ED) Stand Alone Forms: Portal Instructions Referrals: Physician,Non-Staff, MD [Primary Care Provider] - 1 week Discharge Date/Time: 05/15/23 16:59
[2023-05-15] MEDS: MECLIZINE HCL 12.5 MG TABLET 25 MG PO ×2 (14:31→16:54)
[2023-05-15] MEDS: 0.9 % SODIUM CHLORIDE 1,000 ML 999 ML IV (14:33)
[2023-05-15] MEDS: DIAZEPAM 10 MG/2 ML SYRINGE 2.5 MG IV (14:34)
[2023-05-15 14:35] LABS: Basophils Absolute Auto 0.1 10^3/uL (0.0-0.1); Basophils Percent Auto 0.3 % (0.2-2.0); Eosinophils Absolute Auto 0.1 10^3/uL (0.0-0.7); Eosinophils Percent Auto 0.7 % (0.9-7.0); Hemoglobin 12.9 g/dL (12.0-16.0); Immature Granulocytes Abs Auto 0.05 10^3/uL (0.00-0.03); Immature Granulocytes Pct Auto 0.3 % (0.0-0.5); Lymphocytes Absolute Auto 1.5 10^3/uL (1.2-3.8); Lymphocytes Percent Auto 8.2 % (20.5-60.0); Mean Corpuscular HGB Conc 32.3 g/dL (29.9-35.2); Mean Corpuscular Hemoglobin 28.6 pg (26.7-34.0); Mean Corpuscular Volume 88.7 fL (81.0-99.0); Mean Platelet Volume 8.4 fL (9.5-13.5); Monocytes Absolute Auto 0.6 10^3/uL (0.3-0.8); Monocytes Percent Auto 3.4 % (1.7-12.0); Neutrophils Absolute Auto 15.5 10^3/uL (1.4-6.5); Neutrophils Percent Auto 87.1 % (43.0-75.0); Platelet Count 389 10^3/uL (150-450); Red Blood Count 4.51 10^6/uL (4.20-5.40); Red Cell Distribution Width 14.9 % (11.0-15.0); White Blood Count 17.8 10^3/uL (4.0-11.0)
[2023-05-15 14:42] LABS: Alanine Aminotransferase 27 U/L (14-59); Albumin Globulin Ratio 0.9; Albumin Level 3.5 g/dL (3.4-5.0); Alkaline Phosphatase 68 U/L (46-116); Anion Gap 12.9; Aspartate Amino Transferase 16 U/L (15-37); BUN Creatinine Ratio 30.3; Bilirubin Total 0.9 mg/dL (0.2-1.0); Calcium 9.1 mg/dL (8.5-10.1); Carbon Dioxide 25.8 mmol/L (21.0-32.0); Chloride 103 mmol/L (98-107); Estimated GFR (African America >60 (>=60); Estimated GFR (Non-African Ame >60 (>=60); Glucose 158 mg/dL (74-106); Potassium 3.7 mmol/L (3.5-5.1); Sodium 138 mmol/L (136-145); Total Protein 7.5 g/dL (6.4-8.2)
[2023-05-15 16:09] LABS: Bilirubin Urine NEGATIVE (NEGATIVE); Blood Urine NEGATIVE (NEGATIVE); Clarity Urine CLEAR (CLEAR); Color Urine YELLOW (YELLOW); Glucose Urine UA NEGATIVE (NEGATIVE); Ketones Urine 40 mg/dL (NEGATIVE); Leukocyte Esterase Urine NEGATIVE (NEGATIVE); Nitrite Urine NEGATIVE (NEGATIVE); Protein Urine NEGATIVE (NEG/TRACE); Specific Gravity Urine >=1.030 (1.005-1.025)
[2023-05-15 16:11] LABS: Urine Microscopic Indicated NO
== END 2023-05-15 16:59 | disposition home or self-care (01) ==
PROVIDERS: Physician Assistant; Emergency Provider Emergency Medicine
DX: R42 Dizziness and giddiness (principal); R11.2 Nausea with vomiting, unspecified; J45.909 Unspecified asthma, uncomplicated; R12 Heartburn; Z98.891 History of uterine scar from previous surgery
CPT/HCPCS: 36415; 70450; 72170; 80053; 81003; 83735; 85025; 93005; 96374; 99285; J3360